=== PATIENT | male | born 1955 ===

== ENCOUNTER 2021-11-01 07:03 | Day surgery (SDC) | payer OTHER ==
[~2021-11-01] VITALS: Ht 175.3 cm; Wt 95.0 kg
[2021-11-01] VITALS (92 sets, daily range): BP systolic 84–132; BP diastolic 46–81
--- NOTE | 2021-11-01 06:17 | NUR ---
PT ARRIVED TO RM 291, AMBULATORY WITH STEADY GAIT ACCOMPAINED BY . PT ALERT AND ORIENTED X4. NO APPARENT DISTRESS NOTED. PT C/O SIATIC BACK PAIN. PT ORIENTED TO ROOM AND CALL LIGHT SYSTEM. VALUBALES SENT HOME WITH . VS OBTAINED. DISCUSSED POC AND SAFETY PRECAUTIONS. PT VERBALIZED UNDERSTANDING. CALL LIGHT WITHIN REACH. WILL CONTINUE TO MONITOR.
--- NOTE | 2021-11-01 06:46 | NUR ---
CALL PLACED TO DR. PEARCE. NOTIFIED OF PT VS. RBTO OBTAINED AT THIS TIME. FAX TO PHARMACY. WILL MEDICATE WHEN PROFILED AND CONTINUE TO MONITOR.
[2021-11-01 07:46] LABS: HEMATOCRIT 47.6 % (39.0-50.0); HEMOGLOBIN 15.8 g/dl (14.0-18.0); IMMATURE GRANULOCYTES 0.2 % (0.0-5.0); MEAN CELL VOLUME 90.2 fL CALC (80.0-100.0); MEAN CORPUSCULAR HGB 29.9 pG CALC (26.0-32.0); MEAN CORPUSCULAR HGB CONC 33.2 g/dL CAL (32.0-36.0); NEUT# 3.51 thou/uL (1.82-7.42); RED BLOOD COUNT 5.28 mill/uL (4.70-6.10); RED CELL DISTRI WIDTH 12.8 % (11.5-15.5)
[2021-11-01 07:50] LABS: ALBUMIN 4.4 g/dL (3.2-5.0); ALKALINE PHOSPHATASE 43 u/l (38-126); ANION GAP 11 (6-22 (CALC)); BILIRUBIN, TOTAL 1.4 mg/dL (0.0-1.4); BUN 15 mg/dL (8-23); BUN/CREATININE RATIO 14 (12-20 (CALC)); CARBON DIOXIDE 30 mmol/l (22-30); CHLORIDE 101 mmol/l (95-108); CREATININE 1.1 mg/dL (0.7-1.3); GFR > 60 ML/MIN (>=60 (CALC)); GFR FOR AFR.AMER. > 60 ML/MIN (>=60 (CALC)); POTASSIUM 4.3 mmol/l (3.5-5.1); SGOT/AST 46 u/l (19-48); SODIUM 138 mmol/l (137-146); TOTAL PROTEIN 7.1 g/dL (6.3-8.2)
--- NOTE | 2021-11-01 09:26 | NUR ---
DR. PEARCE AT BEDSIDE.
--- NOTE | 2021-11-01 10:45 | NUR ---
Induction Note Patient to ANR procedure room. Time out performed at 1045. Patient placed on monitors, Roopa hugger, bilateral wrist restraints applied for ET tube protection. Versed 5mg given IV push at 1045. Tourniquet applied to right upper arm Lidocaine 100mg given at 1050 IV push followed by Rocoronium 10mg at 1051 IV push and held for 90 seconds. Propofol bolus of 120mg given at 1052 IV push. Succinylcholine 80mg given IV push at 1053. Smooth intubation with 7.5 ETT. Positive CO2. Positive Auscultation for air exchange. Patient placed on ventilator for spontaneous ventilation. Placed on Propofol IV drip at 1055. OG inserted. Positive air on auscultation. Positive gastric content. Stomach washed at this time.
--- NOTE | 2021-11-01 11:07 | NUR ---
OG close note Stomach washed at this time. Naltrexone 75 mg via OG tube. OG will be clamped for 45 minutes.
--- NOTE | 2021-11-01 11:52 | NUR ---
OG open note OG open at this time. Gastric content draining into drainage bag. OG to drain for 45 minutes. Propofol will be titrated down based on patient.
--- NOTE | 2021-11-01 12:37 | NUR ---
OG close note Stomach washed at this time. Naltrexone 50mg via OG tube. OG will be clamped for 45 minutes.
--- NOTE | 2021-11-01 14:45 | NUR ---
Extubation note Closing medications given Benadryl 50mg IV push, Decadron 10mg IV push,Magnesium 4 grams IV, Zofran 8mg IV push, Lidocaine 100mg IV push, Octreotide 100mcg SC. Stomach washed out prior to extubation. Suctioned gastric content. OG removed. Patient extubated. Propofol Discontinued. Wrist restraints removed. Roopa hugger Removed. See ANR Moderate sedate recovery record for further notes and assessment.
--- NOTE | 2021-11-01 15:42 | NUR ---
REPORT RECIEVED FROM CHEYENNE ASHTON.PT RESTING IN LOW FOWLERS POSITION. RESPIRATIONS EVEN AND UNLABORED. 20G RAC IV FLUIDS GOING AT 100. 18G IV LEFTHAND NOTED.BED ALARM ACTIVE. ALL SAFETY PRECAUTIONS IN PLACE WITH CALL LIGHT IN REACH.
--- NOTE | 2021-11-01 16:34 | NUR ---
PT RESTING IN LOW FOWLERS POSITION. RESPIRATIONS EVEN AND UNLABORED. BED ALARM ACTIVE. ALL SAFETY PRECAUTIONS IN PLACE WITH CALL LIGHT IN REACH
--- NOTE | 2021-11-01 19:10 | NUR ---
PATIENT RESTING IN BED ON HIS RIGHT SIDE. ASSESSMENT COMPLETE. PATIENT APPEARS TO BE A MOUTH BREATHER. IV PUMP SOUNDING. IV PAIN MEDICATION COMPLETE. SITE FLUSHED. PATIENT ALERT AND SPEAKING. NO COMPLAINTS VOICED. NO SIGNS OF DISTRESS NOTED. BED REMAINS IN LOW POSITION, BED ALARM ON WELL FOR SAFETY.
--- NOTE | 2021-11-01 20:43 | NUR ---
NOTIFIED DOCTOR PATIENTS SATS DROP IN THE 80S WHEN HE IS ON ROOM AIR. ORDER TO FOR O2 2L VIA NC.
--- NOTE | 2021-11-01 23:14 | NUR ---
RECEIVED SCHEDULED MEDICATIONS. REQUESTED FOOD DUE TO BEING HUNGRY. TOLERATING FOOD WELL. FLUSHED LEFT HAND IV SITE, PATENT. DENIES ANY PAIN. NO DISTRESS NOTED. CALL LIGHT AND BELONGINGS WITHIN REACH. BED IN LOW POSITION. BED ALARM REMAIN ON.
[2021-11-02 03:54] VITALS: BP 133/82
--- NOTE | 2021-11-02 04:26 | NUR ---
PATIENT RESTING IN BED. RECEIVED ALL SCHEDULED MEDS WITHOUT DIFFICULTY. PATIENT ASKED WHEN HE SHOULD TAKE HIS HOME MEDS. INSTRUCTED PATIENT TO ASK DOCTOR WHEN HE COMES AND ROUNDS IN HIS ROOM. PATIENT RECEIVED PRN PAIN MEDICINE FOR PAIN THAT RADIATES FROM LEFT HIP DOWN TO HIS TOE. BED REMAINS IN LOW POSITION. CALL RAMIREZ AND BED ALARM REMAIN ACTIVE. BLOOD PRESSURE REMAINS STABLE.
[2021-11-02 05:11] LABS: HEMATOCRIT 44.6 % (39.0-50.0); IMMATURE GRANULOCYTES 0.2 % (0.0-5.0); MEAN CELL VOLUME 90.5 fL CALC (80.0-100.0); MEAN CORPUSCULAR HGB 30.4 pG CALC (26.0-32.0); MEAN CORPUSCULAR HGB CONC 33.6 g/dL CAL (32.0-36.0); NEUT# 8.95 thou/uL (1.82-7.42); RED BLOOD COUNT 4.93 mill/uL (4.70-6.10); RED CELL DISTRI WIDTH 12.4 % (11.5-15.5)
[2021-11-02 05:41] LABS: ALBUMIN 3.9 g/dL (3.2-5.0); ALKALINE PHOSPHATASE 33 u/l (38-126); ANION GAP 10 (6-22 (CALC)); BILIRUBIN, TOTAL 1.1 mg/dL (0.0-1.4); BUN 17 mg/dL (8-23); BUN/CREATININE RATIO 17 (12-20 (CALC)); CARBON DIOXIDE 25 mmol/l (22-30); CHLORIDE 106 mmol/l (95-108); GFR > 60 ML/MIN (>=60 (CALC)); GFR FOR AFR.AMER. > 60 ML/MIN (>=60 (CALC)); MAGNESIUM 2.5 mg/dL (1.6-2.3); POTASSIUM 4.7 mmol/l (3.5-5.1); SGOT/AST 37 u/l (19-48); SODIUM 137 mmol/l (137-146); TOTAL PROTEIN 6.4 g/dL (6.3-8.2)
--- NOTE | 2021-11-02 08:00 | NUR ---
GOT REPORT FROM SATELLITE TELEVISION INSTALLER NURSE, PATIENT AWAKE WHEN I ENTERED ROOM. PATIENT ASSESSED AND GIVEN MEDICATION SCHEDULED. PATIENT IS AOX4. PATIENT IS CURRENTLY ON 2L NC OF OXYGEN. PATIENT O2 SATURATION IS 98%, PATIENT STATES THAT HE TOOK OFF THE OXYGEN WHEN HE WENT TO BATHROOM ND DID NOT GET WINDED. I INFORMED HIM THAT WE WILL START TO WEAN HIM OFF OF THE OXYGEN LONG HIS SATURATIONS STAYED WITHIN LIMIT AND HE DID NOT BECOME IN ANY DISTRESS. PATIENT VERBALIZED UNDERSTANDING. MD INFORMED. PATIENT WANTS TO SLEEP A BIT LONGER BEFORE GETTING UP FOR SHOWER. AGREED TO TAKE SHOWER IN THE 0900 HOUR.
[2021-11-02 11:05] VITALS: BP 120/63
--- NOTE | 2021-11-02 15:08 | NUR ---
Discharge instructions given. Patient verbalizes understanding of same. Discharged in stable condition via Wheelchair to Home with spouse. All belongings sent with pt.
== END 2021-11-02 15:08 | disposition home or self-care (01) | DRG 897 ==
LOC: ANR 07:03 → MS2 07:03 → ANR 08:31
PROVIDERS: ATTEND Anesthesiology
DX: F11.20 Opioid dependence, uncomplicated (principal)
CPT/HCPCS: J0131; J2354